=== PATIENT | male | born 1990 | race Hispanic/Latino ===

== ENCOUNTER 2022-11-04 17:47 | Emergency (ER) | payer OTHER ==
[2022-11-04] MEDS ORDERED: DIAZEPAM 5 MG TABLET PO ONE (18:30)
[2022-11-04] MEDS ORDERED: KETOROLAC 60 MG VIAL (30MG/ML) IM ONE (18:52)
[2022-11-04] MEDS ORDERED: DIAZEPAM 5 MG TABLET ONE (18:52)
[2022-11-05] MEDS ORDERED: DIAZEPAM 5 MG TABLET PO ONE (04:30)
== END 2022-11-04 19:20 | disposition home or self-care (01) ==
LOC: EDH 17:47
DX: M54.9 Dorsalgia, unspecified (principal); Z53.21 Procedure and treatment not carried out due to patient leaving prior to being seen by health care provider
CPT/HCPCS: J1885

== ENCOUNTER → 2022-11-05 | Emergency (ER) | payer OTHER | LOC: EDH 04:50 | DX: M79.606 Pain in leg, unspecified (principal); Z53.21 Procedure and treatment not carried out due to patient leaving prior to being seen by health care provider ==